=== PATIENT | female | born 1975 | race American Indian/Alaskan Native ===

== ENCOUNTER 2017-11-28 10:16 | Emergency (ER) | payer BC ==
[2017-11-28] MEDS ORDERED: MOTRIN PO ONE (11:05)
--- NOTE | 2017-11-28 11:06 | Emergency Department Report ---
ED Chest Pain HPI - General Chief Complaint: Neck Pain/Injury Stated Complaint: CHEST PAIN Source: patient Mode of arrival: Ambulatory Limitations: No Limitations - History of Present Illness Initial Comments: This 42-year-old -[place]ag[place] female who presents with left-sided chest pain started around 5 AM this morning. 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 The person change in the time that the vehicle down the check and he patient on the left side of chest and shoulder. She reports pain is 7 out of 10 pain scale with movement. It is sharp and dull sensation. Pain is left breast area radiating to left shoulder and neck. There is no bruising or swelling to the area. Pain is worse with deep breaths and cough shortness of breath while walking. She denies drug use, asthma, SOB, palpations, fever, dyspnea, numbness or tingling, fever. MD Complaint: chest pain -: This morning Time: 05:00 Onset: other (injury) Pain Location: left chest Pain Radiation: LUE, neck Severity: moderate Severity scale (0 -10): 6 Quality: sharp, dull Consistency: intermittent Improves With: rest Worsens With: exertion, inspiration, movement Context: trauma/injury Treatments Prior to Arrival: none Aspirin use within the Past 7 Days: (0) No - Related Data On Oral Contraceptives: No Previous Rx's Medication Instructions Recorded Last Taken Type Ibuprofen [Motrin 800 MG tab] 800 mg PO Q8HR PRN #12 tablet 11/28/17 Unknown Rx methOCARBAMOL [Robaxin TAB] 500 mg PO BID PRN #10 tab 11/28/17 Unknown Rx Allergies Allergy/AdvReac Type Severity Reaction Status Date / Time No Known Allergies Allergy Unverified 11/28/17 10:29 Heart Score - HEART Score History: Slightly suspicious EKG: Normal Age: < 45 Risk factors: No known risk factors Troponin: < normal limit HEART Score: 0 ED Review of Systems ROS: Stated complaint: CHEST PAIN Other details as noted in HPI Constitutional: denies: chills, fever Respiratory: denies: cough, shortness of breath, wheezing Cardiovascular: chest pain (left-sided chest pain). denies: palpitations Gastrointestinal: denies: abdominal pain, nausea, diarrhea Skin: denies: rash, lesions Neurological: denies: headache, weakness, paresthesias Psychiatric: denies: anxiety, depression ED Past Medical Hx - Past Medical History Hx Headaches / Migraines: Yes - Surgical History Past Surgical History?: Yes Additional Surgical History: neck surgery, tubal ligation, tummy tuck, ablation. - Social History Smoking Status: Never Smoker Substance Use Type: None - Medications Home Medications: Home Medications Medication Instructions Recorded Confirmed Last Taken Type Ibuprofen [Motrin 800 MG tab] 800 mg PO Q8HR PRN #12 tablet 11/28/17 Unknown Rx methOCARBAMOL [Robaxin TAB] 500 mg PO BID PRN #10 tab 11/28/17 Unknown Rx ED Physical Exam - General Limitations: No Limitations General appearance: alert, in no apparent distress - Respiratory Respiratory exam: Present: normal lung sounds bilaterally, chest wall tenderness (tenderness along the left costochondral joint). Absent: respiratory distress, wheezes, rales, rhonchi, stridor, accessory muscle use, decreased breath sounds - Cardiovascular Cardiovascular Exam: Present: regular rate, normal rhythm, normal heart sounds. Absent: systolic murmur, diastolic murmur, rubs, gallop - GI/Abdominal GI/Abdominal exam: Present: soft, normal bowel sounds - Neurological Exam Neurological exam: Present: alert, oriented X3 - Psychiatric Psychiatric exam: Present: normal affect, normal mood - Skin Skin exam: Present: warm, dry, intact, normal color. Absent: rash ED Course Vital Signs 11/28/17 11/28/17 11/28/17 10:25 11:23 12:03 Temperature 98.5 F Pulse Rate 88 Respiratory 16 16 18 Rate Blood Pressure 123/78 Blood Pressure [Left] O2 Sat by Pulse 98 Oximetry 11/28/17 14:15 Temperature Pulse Rate 98 H Respiratory 17 Rate Blood Pressure Blood Pressure 119/88 [Left] O2 Sat by Pulse 97 Oximetry ED Medical Decision Making - Radiology Data Radiology results: report reviewed, image reviewed FINAL REPORT EXAM: XR CHEST ROUTINE 2V HISTORY: left sided chest pain TECHNIQUE: PA and lateral views of the chest Comparison: None FINDINGS: There is no evidence of infiltrate, pneumothorax or pleural fluid collection. The cardiomediastinal silhouette is normal in appearance. The bony structures are unremarkable. IMPRESSION: 1. No evidence of an acute pulmonary process. - Medical Decision Making 42 y.o. female that presents with chest pain on left side of chest that is non- radiating that started this morning. Denies drug use, asthma, SOB, palpations, fever, or dyspnea. Patient is on saline left-sided chest and left shoulder last night while changing a tire. Patient examined by me and in no acute distress. EKG interpreted by the attending normal sinus rhythm. Given Motrin 800 mg po once in ER. Vitals stable. Obtained chest xray with no acute finding. Physical assessment findings of tenderness along costocondral joint on left. Start ibuprofen and robaxin. Discharged home stable. Follow-up with primary care provider and admits few days. Return to work tomorrow. Critical care attestation.: If time is entered above; I have spent that time in minutes in the direct care of this critically ill patient, excluding procedure time. ED Disposition Clinical Impression: Costochondritis, acute, Left-sided chest wall pain Disposition: TO HOME OR SELFCARE Is pt being admited?: No Does the pt Need Aspirin: No Condition: Stable Instructions: Costochondritis (ED) Additional Instructions: Take ibuprofen and flexeril as needed for pain control. Don't take flexeril while driving or operating heavy machinery, may cause drowsiness. Follow up with primary care provider in 24-72 hours. Return to ER if chest pain unresolved, shortness of breath, or difficulty breathing. Prescriptions: Ibuprofen [Motrin 800 MG tab] 800 mg PO Q8HR PRN #12 tablet PRN Reason: Pain , Severe (7-10) methOCARBAMOL [Robaxin TAB] 500 mg PO BID PRN #10 tab PRN Reason: Muscle Spasm Referrals: [facility] [Outside] - 3-5 Days GEMMA ATKINSON DO [Staff Physician] - 3-5 Days Forms: Work/School Release Form(ED) Time of Disposition: 14:00 Print Language: LIBERIAN
[2017-11-28 14:27] VITALS: BP 119/88
--- NOTE | 2017-11-28 16:06 | XRay Report ---
FINAL REPORT EXAM: XR CHEST ROUTINE 2V HISTORY: left sided chest pain TECHNIQUE: PA and lateral views of the chest Comparison: None FINDINGS: There is no evidence of infiltrate, pneumothorax or pleural fluid collection. The cardiomediastinal silhouette is normal in appearance. The bony structures are unremarkable. IMPRESSION: 1. No evidence of an acute pulmonary process.
== END 2017-11-28 14:15 | disposition home or self-care (01) ==
LOC: ED 10:16
DX: M94.0 Chondrocostal junction syndrome [Tietze] (principal); G43.909 Migraine, unspecified, not intractable, without status migrainosus; Z98.51 Tubal ligation status
CPT/HCPCS: 71046; 93005; 93010; 99283